=== PATIENT | female | born 1935 | race Caucasian/White ===

== ENCOUNTER 2023-02-06 14:56 | Emergency (ER) | payer MEDICARE ==
[~2023-02-06] VITALS: Ht 157.5 cm; Wt 55.3 kg
[2023-02-06 15:33] VITALS: BP 185/89; PULSE 75; RESP 18; TEMP 97.6; O2SAT 98
[2023-02-06 16:00] VITALS: O2SAT 98
[2023-02-06] MEDS ORDERED: KETOROLAC 30 MG/ML VIAL ONE (16:23)
[2023-02-06] MEDS ORDERED: KETOROLAC 30 MG/ML VIAL IM ONE (16:25)
[2023-02-06] MEDS ORDERED: ACETAMINOPHEN EXTRA STRENGTH 500 MG TAB PO ONE (16:25)
[2023-02-06] MEDS ORDERED: LIDOCAINE 5% 1 EA PATCH TP ONE (16:49)
[2023-02-06] MEDS ORDERED: LID5T TP (17:27)
[2023-02-06 18:37] VITALS: BP 139/76; PULSE 75; RESP 18; TEMP 97
[2023-02-07] MEDS ORDERED: LIDOCAINE 5% 1 EA PATCH TP SCH (09:00)
== END 2023-02-06 17:33 | disposition home or self-care (01) ==
LOC: MED 14:56
DX: M25.511 Pain in right shoulder (principal); Z79.899 Other long term (current) drug therapy; W19.XXXA Unspecified fall, initial encounter; Y93.89 Activity, other specified; Y92.89 Other specified places as the place of occurrence of the external cause; Y99.8 Other external cause status
CPT/HCPCS: 73030; 73060; 96372; 99284; J1885; Q0092